=== PATIENT | male | born 1995 | race Caucasian/White ===

== ENCOUNTER 2020-10-27 13:28 | Emergency (ER) | payer OTHER ==
[~2020-10-27] VITALS: Ht 182.9 cm; Wt 66.0 kg
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
[2020-10-27] MEDS ORDERED: HYDROcodone/APAP 5/325MG 1 TAB TABLET PO ONE (15:00)
[2020-10-27 15:10] VITALS: BP 134/77
== END 2020-10-27 15:15 | disposition home or self-care (01) ==
LOC: ER 13:28
DX: S40.212A Abrasion of left shoulder, initial encounter (principal); R07.81 Pleurodynia; M25.552 Pain in left hip; F31.9 Bipolar disorder, unspecified; V89.2XXA Person injured in unspecified motor-vehicle accident, traffic, initial encounter; Y93.89 Activity, other specified; Y92.89 Other specified places as the place of occurrence of the external cause; Y99.8 Other external cause status
CPT/HCPCS: 70450; 71110; 72125; 73030; 73502; 99285